=== PATIENT | male | born 1995 | race African-American/Black ===

== ENCOUNTER 2024-06-06 19:52 | Emergency (ER) | payer MEDICAID ==
[~2024-06-06] VITALS: Ht 182.9 cm; Wt 70.0 kg
[2024-06-06 19:53] VITALS: BP 106/67; PULSE 77; RESP 16; TEMP 36.9; O2SAT 99
[2024-06-06] MEDS ORDERED: SULF1TAB48 MT (23:10)
[2024-06-06] MEDS ORDERED: CEPH500C2 MT (23:10)
[2024-06-06] MEDS ORDERED: ACETAMINOPHEN 325MG TABLET PO NR (23:45)
[2024-06-06] MEDS: ACETAMINOPHEN 325MG TABLET PO ONE (23:51)
== END 2024-06-07 | disposition left against medical advice (07) ==
LOC: ER 19:52
DX: L02.31 Cutaneous abscess of buttock (principal)
CPT/HCPCS: 99283